=== PATIENT | male | born 1980 | race Caucasian/White ===

== ENCOUNTER 2022-10-20 21:18 | Emergency (ER) | payer MEDICAID ==
[~2022-10-20] VITALS: Wt 81.6 kg
[2022-10-20] MEDS ORDERED: NAPROSYN500 MG PO (22:34)
== END 2022-10-20 22:30 | disposition home or self-care (01) ==
LOC: ED 21:18
DX: S50.11XA Contusion of right forearm, initial encounter (principal); S60.222A Contusion of left hand, initial encounter; X58.XXXA Exposure to other specified factors, initial encounter; Y93.89 Activity, other specified; Y92.89 Other specified places as the place of occurrence of the external cause; Y99.8 Other external cause status

== ENCOUNTER → 2022-11-19 | Outpatient (CLI) | payer MEDICAID ==
[~2022-11-19] MED LIST: NAPROSYN500 MG PO
== END | disposition home or self-care (01) ==
LOC: RAD 16:32
PROVIDERS: ATTEND Family Medicine
DX: M25.852 Other specified joint disorders, left hip (principal); M25.851 Other specified joint disorders, right hip; M25.551 Pain in right hip; M25.552 Pain in left hip